=== PATIENT | female | born 1960 | race Caucasian/White ===

== ENCOUNTER 2017-10-08 08:47 | Day surgery (SDC) | payer BC, MEDICARE ==
--- NOTE | 2017-10-08 07:12 | History and Physical Report ---
DATE: 10/07/2017. CHIEF COMPLAINT AND HISTORY OF CHIEF COMPLAINT: This patient presents with a history of a postlaminectomy radiculopathy. Due to the failure of therapies, a spinal cord stimulator trial was conducted with an eventual implant on 2015. Although initially the system appeared to be working well, over time there appeared to be multiple electrode failures and lack of functionality. During the interim period of time, a new generator also became available. She was evaluated for possible removal or replacement, and she opted for replacement. PAST MEDICAL HISTORY: Hypothyroidism, hypertension. PAST SURGICAL HISTORY: Foot surgery, laparotomy, carpal tunnel release, abdominal surgery, eye surgery. MEDICATIONS ON ADMISSION: To be provided. ALLERGIES: Seasonal. SOCIAL HISTORY: Caffeine. FAMILY HISTORY: Thyroid disease, asthma, diabetes, hypertension, cancer. REVIEW OF SYSTEMS: The patient seems appropriate and in no acute distress. The remainder of the systems review shows glasses, headaches, thyroid disease, hypertension, degenerative arthritis. PHYSICAL EXAMINATION: General: Height and weight are unknown. Vital Signs: Unavailable. HEENT: Within normal limits. Lungs: Clear. Heart: Regular rate and rhythm. Abdomen: Nontender. Musculoskeletal: Examination of the musculoskeletal system shows the generator at the left posterior gluteal margin. The incisions for the leads are identified approximating T12. Both incisions are intact. Further evaluation shows the primary pain pattern to be in the low back with a bilateral lower extremity extension. Sensory bolaños are intact. Neurologic: Cranial nerves are intact. IMPRESSION: 1. POSTLUMBAR LAMINECTOMY SYNDROME, ICD-10 CODE M96.1. 2. LUMBAR RADICULOPATHY, ICD-10 CODE M54.16 AND M54.17. 3. SPINAL CORD STIMULATOR INTERNAL GENERATOR NONFUNCTIONAL. PLAN: The patient is here for removal of the nonfunctional system and replacement with a new system including two leads and a new generator. We will use, as much as possible, the previous incisional sites. The potential risks, side effects, and complications have all been carefully reviewed and discussed. The patient understands and agrees. We will consider the procedure outpatient , although an overnight stay will be evaluated. JOB NUMBER: [id number] cc: Susie Angel D. MTDD
[~2017-10-08 08:47] MED LIST: ACETAMINOPHEN 1,000 MG/100 ML BTL IV ONE; CEFAZOLIN 2 Gram 2 GM/50 ML BAG IVPB ONE; FAMOTIDINE 20MG TABLET PO ONE; MECLIZINE 25 MG TABLET PO ONE; METOCLOPRAMIDE 10 MG TABLET PO ONE
[2017-10-08] MEDS ORDERED: LIDOCAINE 1% W/EPI 1:200,000 MPF 30ML SQ ONE (08:48)
[2017-10-08] MEDS ORDERED: BUPIVACAINE 0.5% W/EPI MPF 30 ML VIAL IVP ONE (08:48)
[2017-10-08] MEDS ORDERED: LIDOCAINE 2% MDV (20MG/ML) 20ML VIAL IV ONE (08:48)
[2017-10-08] MEDS ORDERED: CEFAZOLIN 1G VIAL IM ONE (08:48)
[2017-10-08] MEDS ORDERED: PROPOFOL 10 MG/ML VIAL IV ONE (08:48)
[2017-10-08] MEDS ORDERED: MIDAZOLAM HCL 2MG/2ML VIAL IV ONE (08:48)
[2017-10-08] MEDS ORDERED: FLUMAZENIL 1MG/10ML VIAL IV ONE (08:48)
[2017-10-08] MEDS ORDERED: HYDROMORPHONE HCL 2 MG/ML VIAL IV ONE (08:48)
[2017-10-08] MEDS ORDERED: FENTANYL PF 100MCG/2ML VIAL IV ONE (08:48)
[2017-10-08] MEDS ORDERED: ACETAMINOPHEN 325 MG TAB PO PRN ×2 (12:55)
[2017-10-08] MEDS ORDERED: METOCLOPRAMIDE HCL 10 MG/2 ML VIAL IVP PRN (12:55)
[2017-10-08] MEDS ORDERED: DIPHENHYDRAMINE HCL 50 MG/ML VIAL IVP PRN ×2 (12:55)
[2017-10-08] MEDS ORDERED: HYDROMORPHONE HCL 2 MG/ML VIAL IM PRN ×2 (12:55)
[2017-10-08] MEDS ORDERED: AL HYDROX/MAG HYDROX 30ML UD PO PRN (12:55)
[2017-10-08] MEDS ORDERED: SENNOSIDES/DOCUSATE SODIUM UD CAPSULE PO PRN ×2 (12:55)
[2017-10-08] MEDS ORDERED: HYDROCODONE/APAP 7.5/325MG TABLET PO PRN (12:55)
[2017-10-08] MEDS ORDERED: METOCLOPRAMIDE 10 MG TABLET PO PRN (12:55)
[2017-10-08] MEDS ORDERED: TEMAZEPAM 15 MG CAPSULE PO PRN ×2 (12:55)
[2017-10-08] MEDS ORDERED: DIPHENHYDRAMINE HCL 25 MG CAPSULE PO PRN ×2 (12:55)
[2017-10-08] MEDS: CEFAZOLIN 2 Gram 2 GM/50 ML BAG IVPB SCH (18:10)
[2017-10-08] MEDS: 0.9 % SODIUM CHLORIDE 10ML SYR IVP SCH (21:23)
[2017-10-08] MEDS: HYDROCODONE/APAP 7.5/325MG TABLET PO PRN (21:23)
[2017-10-08] MEDS ORDERED: TRAZODONE 50 MG TABLET PO SCH (22:00)
[2017-10-08] MEDS ORDERED: SIMVASTATIN 20 MG TABLET PO SCH (22:00)
[2017-10-09] MEDS: CEFAZOLIN 2 Gram 2 GM/50 ML BAG IVPB SCH ×2 (02:16→09:32)
[2017-10-09] MEDS: HYDROCODONE/APAP 7.5/325MG TABLET PO PRN ×2 (02:26→07:59)
[2017-10-09] MEDS: 0.9 % SODIUM CHLORIDE 10ML SYR IVP SCH (09:31)
--- NOTE | 2017-10-09 20:15 | Operative Note - [place] ---
DATE OF SURGERY: 10/08/17 PREOPERATIVE DIAGNOSES: 1. INTRACTABLE LUMBAR RADICULOPATHY, ICD-10 CODE = M54.16 AND M54.17. 2. INDWELLING SPINAL CORD STIMULATOR AND INTERNAL GENERATOR NONFUNCTIONAL. SURGERY: 1. FLUOROSCOPIC-GUIDED INCISION AND SUBCUTANEOUS DISSECTION AND REMOVAL OF SPINAL CORD STIMULATORS IMPLANTED X2. 2. INCISION, SUBCUTANEOUS DISSECTION AND REMOVAL OF INDWELLING INTERNAL PULSE GENERATOR LEFT POSTERIOR GLUTEAL MARGIN. 3. FLUOROSCOPIC-GUIDED EPIDURAL ACCESS T12-L1, PLACEMENT OF SPINAL CORD STIMULATOR LEAD 1, A [employer] INFINION 16 WITH 6 ELECTRODES POSITIONED LEFT AT T6. 4. FLUOROSCOPIC-GUIDED EPIDURAL ACCESS T11-12, PLACEMENT OF SPINAL CORD STIMULATOR LEAD 2, A [employer] INFINION 16 WITH 6 ELECTRODES POSITIONED RIGHT T6. 5. COMPLEX PROGRAMMING OF LEAD 1, OVER 20 MINUTES FOLLOWED BY COMPLEX PROGRAMMING OF LEAD 2, OVER 20 MINUTES. 6. INCISION, SUBCUTANEOUS DISSECTION, AND REVISION OF POUCH FOR PREVIOUS LEADS. SECURING OF LEAD 1 AND LEAD 2 TO SUPRASPINOUS FASCIA USING A [employer] LOCKING ANCHOR. 7. REVISION OF SUBCUTANEOUS POUCH FOR PREVIOUS GENERATOR LEFT POSTERIOR GLUTEAL MARGIN 8. TUNNELING BETWEEN POUCHES, PLACEMENT OF EXTERNAL PORTION OF LEAD 1 AND LEAD 2 INTO GENERATOR POUCH, EACH LEAD INTERFACED TO THE GENERATOR IDENTIFIED A [employer] PROGRAMMABLE, RECHARGEABLE WAVEWRITER. 9. PLACEMENT OF LEADS INTO POUCH. CLOSURE OF INCISION WITH VICRYL FOR FASCIA, RUNNING SUBCUTICULAR VICRYL FOR SKIN, PLACEMENT FOR GENERATOR POUCH, CLOSURE WITH VICRYL FOR FASCIA, RUNNING SUBCUTICULAR VICRYL FOR SKIN, DERMABOND CLOSURE OVER BOTH SITES. 10. COMPLEX RECOVERY ROOM PROGRAMMING INTERNAL GENERATOR HOME USE, TWO STIMULATORS, 20 MINUTES. SURGEON: NICHO LESTER D.O. ANESTHESIA: LOCAL SEDATION. ANESTHESIA PROVIDER: DARELL MEYER CRNA. INDICATIONS: This patient presents with a history of an intractable lumbar radiculopathy. Due to the failure of all therapies, a spinal cord stimulator and internal generator was positioned, 2016. Although initially everything appeared to be working well, a slip and a fall at home within the last four to five months resulting in hospitalization also caused a dramatic change and migration as well as displacement of the stimulators. Imaging showed one of the two leads down 3 to 4 vertebral bodies. Electronic analysis of the system identified almost complete diffuse electrode failure. She was given the option to remove or remove and replace. She opted to remove and replace. SURGERY: Intravenous line, vital sign monitoring, IV sedation, prepped and draped sterile technique. Previous incision for the two leads infiltrated, incision made and subcutaneous was conducted to the supraspinous fascia. The anchors were removed, sutures were removed, and the two leads were removed intact. At the left posterior gluteal margin generator pouch, skin infiltrated and incision made and subcutaneous dissection was conducted to the generator pouch. The generator was exteriorized and removed along with its connections. Antibiotic irrigation and Bovie for hemostasis. At the midline incision, the epidural interspace at 12-1 and 11-12 was accessed and spinal cord stimulator lead 1, a [employer] Infinion 16 with 6 electrodes inserted at T12-L1 and positioned left of midline under imaging at T6. With the epidural access at 11-12, spinal cord stimulator lead 2, a [employer] Infinion 16 with 6 electrodes positioned right of the midline at T6. Complex programming of lead 1 over 20 minutes followed by complex programming of lead 2 over 20 minutes resulting in a complete pattern of stimulation across the back and into the legs with the patient indicating we were in all of the areas of the pain. She was given the option to implant or remove and she opted to implant. She was re- sedated. The incision site for the leads was revised and enlarged to accommodate the new system. The needle was removed and then each lead was anchored to the supraspinous fascia with a [employer] locking anchor. At the left posterior gluteal margin pouch for the previous generator, the incisional pouch was widened to accommodate the new generator and revised. A tunneling tool was used to carry the two leads into the generator pouch and then each lead was interfaced with the new [employer] WaveWriter generator. Antibiotic irrigation and Bovie for hemostasis. The leads were placed into the pouch and the generator into the pouch and secured to the posterior fascia with nonabsorbable suture and then both incisions were closed with Vicryl for fascia and running subcuticular Vicryl for skin. A Dermabond closure to approximate both incisions was then provided. She was transported to the Recovery Room stable, no side-effects from the procedure or the sedation. She will be kept overnight for observation and in the morning discharged. DISCHARGE INSTRUCTIONS: 1. The sites are to remain clean and dry. No showering or bathing in any way that would disrupt dressings, although the Dermabond will allow showing, no bathing. 2. Standard medications resumed, including Levaquin, the antibiotic 500 mg once a day for 14 days. 3. She will keep her activities low. No bend, lift, push, pull. The office will contact her in 24 to 48 hours to set up an appointment to evaluate the incisions in 7 to 10 days. At that point, she will be evaluated for further activity. All other instructions provided, numbers to contact if problems given. She will then be prepared for discharge. cc: Dr. Radha Torres JOB NUMBER: [id number] MTDD
--- NOTE | 2017-10-10 08:28 | RADIOLOGY REPORT ---
EXAM: THORACOLUMBAR SPINE, SINGLE VIEW HISTORY: POSTOP. TECHNIQUE: A single AP view of the thoracic and lumbar spines was obtained. Comparison: Prior exam from 01/31/16. FINDINGS: Stimulating wires with the proximal tips projecting over the T6 vertebral body. Post surgical changes of the lumbar spine. IMPRESSION: STIMULATING WIRES IN PLACE. POSTOP CHANGE LUMBAR SPINE. JOB NUMBER: [id number] MTDD
== END 2017-10-09 12:45 | disposition home or self-care (01) ==
LOC: SUR 08:47 → MEDSURG 13:15 → SUR 10-09 12:45
PROVIDERS: ATTEND Pain Medicine Interventional Pain Medicine
DX: M54.16 Radiculopathy, lumbar region (principal); M54.17 Radiculopathy, lumbosacral region; I10 Essential (primary) hypertension; E78.00 Pure hypercholesterolemia, unspecified
CPT/HCPCS: 72020; 95972; C1820; C1883; J0690